=== PATIENT | female | born 1930 | race Caucasian/White ===

== ENCOUNTER → 2018-02-19 | Outpatient (CLI) | payer MEDICARE, OTHER ==
[2018-02-19 18:30] LABS: Blood Urea Nitrogen 14 mg/dL (7-17)
--- NOTE | 2018-02-25 11:45 | CT ---
EXAMINATION TYPE: CT abdomen pelvis w con DATE OF EXAM: 02/19/2018 COMPARISON: CT from outside institution to 2014 HISTORY: Abdominal pain and nausea x [address] DLP: 1220 mGycm Automated exposure control for dose reduction was used. TECHNIQUE: Helical acquisition of images from the lung bases through the pelvis have been completed. CONTRAST: Performed with Oral Contrast and with IV Contrast, patient injected with 100 mL of Isovue 300. FINDINGS: Small hiatal hernia is noted. LUNG BASES: Some strand-like densities are present at the lung bases, there is likely some dependent atelectatic change, possible mild interstitial lung disease. No pleural or pericardial effusion. AORTA: No significant abnormality is appreciated. LIVER/GB: Patient is post cholecystectomy, calcification present along the hemidiaphragm within the r ight lobe of the liver is noted, there are some mildly prominent intrahepatic biliary ducts likely du e to postop change. PANCREAS: No significant abnormality is seen. SPLEEN: No significant abnormality is seen. ADRENALS: No significant abnormality is seen. KIDNEYS: Multiple cortical cysts are associated with the kidneys, largest is at the upper pole of the left kidney and measures approximately 3.7, findings similar to prior exam REPRODUCTIVE ORGANS: Cystic focus associated with the left ovary measures 4.6 cm, cystic focus associ ated with the right ovary measures 3.1 cm similar to prior exam, pessary is in place BOWEL: Duodenal diverticulum suspected at the level of the head of the pancreas. Diverticular change s associated with the sigmoid colon FREE AIR: No Free Air visible. ASCITES: None visible. PELVIC ADENOPATHY: None visualized. RETROPERITONEAL ADENOPATHY: No Retroperitoneal Adenopathy visible. URINARY BLADDER: No significant abnormality is seen. OSSEOUS STRUCTURES: Streak artifact due to patient's left hip arthroplasty could limit sensitivity. There is anterior compression deformity at L2, resulting kyphosis, loss of height of approximately 25 % to 50%. Multilevel facet arthropathy changes are present IMPRESSION: NO SIGNIFICANT INTERVAL CHANGE. FINDINGS ARE SIMILAR TO PRIOR EXAM.
== END | disposition home or self-care (01) ==
LOC: RADCTMAIN 17:37
PROVIDERS: ATTEND Family Medicine
DX: R93.5 Abnormal findings on diagnostic imaging of other abdominal regions, including retroperitoneum (principal)
CPT/HCPCS: 82565; 84520; 74177; 36415; Q9967